=== PATIENT | female | born 1970 | race Caucasian/White ===

== ENCOUNTER 2018-10-13 12:55 | Emergency (ER) | payer OTHER ==
[~2018-10-13] VITALS: Ht 157.5 cm; Wt 59.0 kg
[2018-10-13 12:57] VITALS: BP 117/83
[2018-10-13] MEDS ORDERED: PRON INH (13:04)
[2018-10-13 14:26] VITALS: BP 117/83
--- NOTE | 2018-10-13 14:27 | NUR ---
PATIENT BIB [facility] POLICE DEPT. PATIENT EXAMINED BY . PATIENT MEDICALLY CLEARED AND RELEASED IN CUSTODY IN STABLE CONDITION. ORIGINAL PRE-BOOK FORM GIVEN TO OFFICER .
== END 2018-10-13 14:25 ==
LOC: MED 13:52
DX: Z04.1 Encounter for examination and observation following transport accident (principal); Z02.89 Encounter for other administrative examinations; Z79.899 Other long term (current) drug therapy; V89.2XXA Person injured in unspecified motor-vehicle accident, traffic, initial encounter; Y93.89 Activity, other specified; Y92.89 Other specified places as the place of occurrence of the external cause; Y99.8 Other external cause status
CPT/HCPCS: 99283